=== PATIENT | female | born 1965 | race Caucasian/White ===

== ENCOUNTER → 2018-01-15 | Outpatient (CLI) | payer OTHER ==
[~2018-01-15] MED LIST: ACYC200 PO; ALBU90OI INH; ATOR10 PO; BACPOLTO30 TOP; CEPH500 PO; CODGUAEL PO; CYCL10 PO; DOXY100 PO; ESTRADOIL PO; GABA300 PO; HYDACE5 PO; HYDCOR2.5B TOP; HYDPAM50 PO; HYDR454TO; IBUP600 PO; IBUP800 PO; IBUPROFEN; LAVAP17G PO; LEVFLO500 PO; LISI20 PO; MEDR2.5 PO; METH5 PO; NAPROXEN; OXYACE5T PO; OXYC5 PO; PROM25 PO; Pepcid20 MG PO; RANI150 PO; RXHYDACE PO; TERB24TC; [UNRECOGNIZED DRUG - CODE] TOP
[2018-01-17 13:11] LABS: HPV Genotype 16 Not Detected (NOTDET); HPV Genotype 18 Not Detected (NOTDET)
[2018-02-04 12:25] LABS: HPV High Risk Other Not Detected (NOTDET)
== END ==
LOC: LAB 17:35
PROVIDERS: Registered Nurse Community Health
DX: Z12.4 Encounter for screening for malignant neoplasm of cervix (principal)
CPT/HCPCS: 87624; G0123

== ENCOUNTER → 2019-01-13 | Outpatient (CLI) | payer OTHER ==
[~2019-01-13] MED LIST changes: +DOCU100 PO; +ERGO400 PO
== END | disposition home or self-care (01) ==
LOC: LAB SHORT 15:19 → LAB 15:19
DX: B37.9 Candidiasis, unspecified (principal)
CPT/HCPCS: 87070; 87205

== ENCOUNTER 2019-01-19 07:59 | Day surgery (SDC) | payer OTHER ==
[~2019-01-19] VITALS: Ht 167.6 cm; Wt 80.3 kg
--- NOTE | 2019-01-19 08:50 | NUR ---
History, Chart, Medications and Allergies reviewed before start of procedure. Patient confirms NPO status and agrees with scheduled surgery. Patient States Post-Procedure ride home has been arranged with her mother or her daughter.
--- NOTE | 2019-01-19 09:07 | NUR ---
PATIENT STATES SHE HAS GONE THROUGH MENOPAUSE AND HAD A TUBAL LIGATION. NO HCG INDICATED. Lungs diminished T/O to Auscultation.
--- NOTE | 2019-01-19 09:10 | NUR ---
PATIENT STATES SHE LEFT HER DENTURES AT HOME.
--- NOTE | 2019-01-19 11:03 | NUR ---
INTO STEP WITH RN.
--- NOTE | 2019-01-19 11:05 | NUR ---
ENCOURAGED TO TAKE DEEP BREATHS AND COUGH DEEP BREATHE
--- NOTE | 2019-01-19 11:31 | NUR ---
PATIENT WANTING TO GET DRESSED AT THIS TIME. WENT OVER DISCHARGE INSTRUCTIONS WITH PATIENT. Patient States Post-Procedure ride home has been arranged. Discharged via wheelchair to private car for ride home.
--- NOTE | 2019-01-19 11:41 | NUR ---
DISCHARGED AT THIS TIME WITH ALL [facility]
== END 2019-01-19 22:41 | disposition home or self-care (01) ==
LOC: ORSCMMR 07:59 → ORD 10:00 → ORSCMMR 22:41
PROVIDERS: Obstetrics & Gynecology
PROC: 0UT64ZZ Resection of Left Fallopian Tube, Percutaneous Endoscopic Approach (ICD-10-PCS; principal; 2019-01-19 10:00)
PROC: 0UT14ZZ Resection of Left Ovary, Percutaneous Endoscopic Approach (ICD-10-PCS; principal; 2019-01-19 10:00)
DX: D27.1 Benign neoplasm of left ovary (principal); N83.8 Other noninflammatory disorders of ovary, fallopian tube and broad ligament; I10 Essential (primary) hypertension; J44.9 Chronic obstructive pulmonary disease, unspecified; Z99.81 Dependence on supplemental oxygen; F17.210 Nicotine dependence, cigarettes, uncomplicated; Z79.899 Other long term (current) drug therapy
CPT/HCPCS: 88305; J1100; J2250; J2405; J2710; J3010; J7120

== ENCOUNTER 2024-03-19 13:24 | Inpatient (IN) | payer OTHER ==
[~2024-03-19] VITALS: Ht 167.6 cm; Wt 75.7 kg
[2024-03-19] VITALS (8 sets, daily range): BP systolic 84–99; BP diastolic 69–76
[~2024-03-19 13:24] MED LIST changes: +CEFD300 PO
[2024-03-19 14:20] LABS: Albumin, Blood 2.5 g/dL (3.4-5.0); Albumin/Globulin Ratio 0.8 (0.8-1.8); Bilirubin, Total 0.4 mg/dL (0.1-1.0); Bun/Creatinine Ratio 10.5 (12.0-20.0); Calcium, Blood 8.3 mg/dL (8.5-10.1); Creatinine, Blood 3.34 mg/dL (0.40-1.00); Globulin, Blood 3.3 g/dL (2.2-4.0); Total Protein, Blood 5.8 g/dL (6.4-8.2)
[2024-03-19 14:24] LABS: BASOPHILS ABSOLUTE AUTO 0.04 K/mm3 (0.00-0.23); BASOPHILS PERCENT AUTO 1 % (0-2); EOSINOPHILS ABSOLUTE AUTO 0.04 K/mm3 (0.00-0.68); EOSINOPHILS PERCENT AUTO 1 % (0-6); Hematocrit 34.4 % (33.0-51.0); Hemoglobin 11.6 g/dL (11.5-16.0); IMMATURE GRAN ABSOLUTE AUTO 0.01 K/mm3 (0.00-0.10); IMMATURE GRAN PERCENT AUTO 0 % (0-1); LYMPHOCYTES PERCENT AUTO 34 % (21-46); MONOCYTES ABSOLUTE AUTO 0.38 K/mm3 (0.16-1.47); MONOCYTES PERCENT AUTO 6 % (4-13); Mean Corpuscular HGB 34.1 pg (26.0-34.0); Mean Corpuscular HGB Conc 33.7 g/dL (31.5-36.5); Mean Corpuscular Volume 101 fL (80-100); NEUTROPHILS ABSOLUTE AUTO 3.86 K/mm3 (1.96-9.15); NEUTROPHILS PERCENT AUTO 59 % (41-73); Platelet Count 124 K/mm3 (150-400); RDW Coefficient Variation 16.3 % (11.7-14.2); RDW Standard Deviation 60.2 fL (35.1-46.3); White Blood Cell Count 6.53 K/mm3 (4.00-11.30)
[2024-03-19] MEDS ORDERED: NS 1,000 ML IV SCH ×3 (14:25→16:30)
[2024-03-19 14:37] LABS: Ethanol (Alcohol), Blood, Med <3 mg/dL; Magnesium, Blood 1.8 mg/dL (1.6-2.4)
[2024-03-19] MEDS ORDERED: Ipratropium/Albuterol SulF 2.5-0.5MG/3 ML Amp INH SCH (16:50)
[2024-03-19 16:54] LABS: Base Excess Venous -8.6 mmol/L; Bicarbonate Venous 18.1 mmol/L (24.0-30.0); PCO2 Venous 35.8 mmHg (38-42)
[2024-03-19] MEDS ORDERED: MethylPREDNISolone Sod Succ 125 MG Vial IV SCH (17:00)
[2024-03-19] MEDS ORDERED: Azithromycin 250 MG Tab PO SCH (20:00)
[2024-03-19] MEDS ORDERED: Famotidine 20 MG Tab PO SCH (21:00)
[2024-03-19] MEDS ORDERED: CefTRIAXone Sodium 1,000 MG in NS 100 ML IV SCH (21:00)
[2024-03-19] MEDS ORDERED: Gabapentin 300 MG Cap PO SCH (21:00)
[2024-03-20] VITALS (10 sets, daily range): BP systolic 85–96; BP diastolic 61–83
[2024-03-20 04:22] LABS: Bun/Creatinine Ratio 12.7 (12.0-20.0); Calcium, Blood 7.3 mg/dL (8.5-10.1); Creatinine, Blood 2.37 mg/dL (0.40-1.00); Potassium, Blood 4.4 mmol/L (3.5-5.5)
--- NOTE | 2024-03-20 06:05 | NUR ---
SHIFT SUMMARY A&Ox4, CALLS AND COMMUNICATES NEEDS APPROPRIATELY. BP SOFT WITH SBP 90's, ASYMPTOMATIC, SINUS 90's, DENIES CP/PRESSURE. SpO2> 92% RA-2L VIA NC, DENIES SOB. VERNON CATH PLACED D/T RETENTION, PATENT, DRAINING TAMIKO URINE TO GRAVITY. PT REPORTS INCONTINENCE OF BOWEL, THOUGH USED BEDPAN FOR BM. PT WITH NO C/O PAIN. PT SLEPT COMFORTABLY THROUGHOUT SHIFT, Q2 TURNS PROVIDED. NO OTHER EVENTS, WILL REPORT TO ONCOMING RN.
[2024-03-20] MEDS ORDERED: NS 1,000 ML IV SCH (08:00)
[2024-03-20] MEDS ORDERED: Sodium Bicarbonate 650 MG Tab PO SCH (08:00)
[2024-03-20] MEDS ORDERED: Heparin Sodium,Porcine 5,000 UNIT/0.5 ML SDV SC SCH (09:00)
[2024-03-20] MEDS ORDERED: Cholecalciferol 1000 Unit Tablet (=25MCG) PO SCH (09:00)
--- NOTE | 2024-03-20 11:10 | NUR ---
TRANSFER: PT TRANSFERRED TO [facility] 364 VIA WHEELCHAIR. REPORT GIVEN TO MED RN. ALL BELONGINGS WITH PT.
--- NOTE | 2024-03-20 11:48 | NUR ---
TRANSFER NOTE: PT ARRIVED TO THE UNIT AROUND 1130 VIA WHEELCHAIR. SHE WAS ABLE TO SELF TRANSFER WITH ASSIST TO THE BED. SHE WAS SETTLED IN BED, CALL LIGHT/WATER PROVIDED. 2 RN SKIN CHECK COMPLETED WITH RUYB TOWNSEND AND IVS ARE PATENT. NO SIGNS OR SYMPTOMS OF DISTRESS WITH PATIENT. PLAN OF CARE ONGOING.
--- NOTE | 2024-03-20 16:20 | NUR ---
SHIFT SUMMARY: NO EVENTS OR CHANGES WITH PATIENT SINCE SHE ARRIVED TO THE UNIT. SHE HAS BEEN PLEASANT AND COOPERATIVE WITH CARE. SHE MAKES HER NEEDS KNOWN. SHE VOICES THAT SHE HAS MEMORY ISSUES AND WHEN SHE DOES SHE SHARES THE SAME STORY ABOUT HOW SHE CAN REMEMBER ALL OF HER FAMILY MEMEBERS BI MART NUMBERS, BUT CAN'T REMEMBER OTHER THINGS. 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 SHE IS SATURATING WELL ON ROOM AIR; NOT SHOWING SIGNS OF RESPIRATORY DISTRESS. HER MOTHER IS AT BEDSIDE PLAYING DICE WITH THE PATIENT. PATIENT IS SITTING ON SIDE OF THE BED, CALL LIGHT WITHIN REACH, NO SIGNS OR SYMPTOMS OF DISTRESS. PLAN OF CARE ON GOING.
[2024-03-21 03:10] VITALS: BP 87/64
[2024-03-21 05:46] LABS: Calcium, Blood 8.1 mg/dL (8.5-10.1); Creatinine, Blood 2.13 mg/dL (0.40-1.00); Potassium, Blood 4.4 mmol/L (3.5-5.5)
[2024-03-21 07:21] VITALS: BP 101/69
[2024-03-21] MEDS ORDERED: Sodium Bicarb 8.4% Inj 150 MEQ in Dextrose 5% 1,000 ML IV SCH (08:05)
[2024-03-21] MEDS ORDERED: PredniSONE 20 MG Tab PO SCH (09:00)
[2024-03-21] MEDS ORDERED: Albuterol 2.5 MG/3 ML VIAL INH PRN (11:35)
[2024-03-21] MEDS ORDERED: Polyethylene Glycol 3350 17 gm PO PRN (11:40)
[2024-03-21] MEDS ORDERED: Cyclobenzaprine HCl 10 MG Tab PO PRN (11:40)
[2024-03-21 14:58] VITALS: BP 103/74
--- NOTE | 2024-03-21 16:56 | NUR ---
SHIFT SUMMARY: PATIENT IS ALERT AND ORIENTED X3 WIHT CONFUSION AND FORGETFULNESS. SHE WAS STARTED ON A BICARB DRIP TODAY AND HER VERNON CATHETER WAS REMOVED PER. DR. BERGER IN PREPARATION FOR POSSIBLE D/C TOMORROW. SHE IS A 1 PERSON ASSIST WITH THE WALKER TO THE BATHROOM. SHE DID HAVE A BOWEL MOVEMENT TODAY AFTER RECEIVING MIRALAX. SHE HAS NOT VOIDED SINCE HER VERNON HAS BEEN REMOVED; PATIENT VOICES NO URGE TO URINATE; CURRENT BLADDER SCAN VOLUME IS 115. HER MOTHER IS AT BEDSIDE PLAYING DICE WITH THE PATIENT, PATIENT SITTING ON SIDE OF BED, CALL LIGHT WITHIN REACH, NO SIGNS OR SYMPTOMS OF DISTRESS, PLAN OF CARE ONGOING.
[2024-03-21 19:54] VITALS: BP 105/74
--- NOTE | 2024-03-22 01:04 | NUR ---
HOSPITALIST NOTIFIED. SR. AGUILAR NOTIFIED OF PATIENT HAVING ONE UNMEASURED VOID THIS SHIFT WITH FLUIDS INFUSING. DR. AGUILAR ORDERED FOR BLADDER SCAN TO BE DONE QSHIFT AND TO NOTIFY IF VOLUME IN BLADDER >300MLS.
--- NOTE | 2024-03-22 01:59 | NUR ---
PATIENT IS AOX3 WITH FORGETFULLNESS. PATIENT IS ABLE TO MAKE HER NEEDS KNOWN. PATIENT IS A 1P ASSIST W/FWW AND GAITBELT TO THE BATHROOM. PATIENT TAKES PILLS WHOLE WITH WATER. PATIENT HAS BED LOCKED IN LOWEST POSITION WITH CALL LIGHT IN REACH. REPORT GIVEN TO GENE TOWNSEND.
--- NOTE | 2024-03-22 02:17 | NUR ---
RECEIVED REPORT AND ASSUMED CARE OF PT. SHE IS LYING QUIETLY IN BED WITH HER EYES CLOSED, RESPIRATIONS EVEN AND UNLABORED. BED IN LOWEST POSITION, CALL LIGHT IN REACH.
[2024-03-22 02:53] VITALS: BP 105/73
--- NOTE | 2024-03-22 07:30 | NUR ---
ASSUMED CARE: PT AWAKE AND TALKING TO STAFF DURING BEDSIDE REPORT. ASSISTED WITH DENUTURES AND CELL PHONE. CALL LIGHT IN REACH. DENIES FURTHER NEEDS AT THIS TIME.
--- NOTE | 2024-03-22 08:26 | NUR ---
SHIFT SUMMARY: JG IS A&OX3. VSS, NO ACUTE EVENTS OVERNIGHT. IV TO LEFT ARM INFILTRATED, ULTRASOUND GUIDED AT PLACED BY CUSTOMS OPENER VERIFIER PACKER. SHE IS TOLERATING PO INTAKE WELL, IS A ONE-PERSON ASSIST TO THE BATHROOM WITH THE FWW. ATTENDS IN PLACE FOR OCCASIONAL INCONTINENCE. PT STATES SHE IS HOPEFUL [facility] SHE IS LYING IN BED WITH THE CALL LIGHT IN REACH. REPORT WAS GIVEN TO DAY SHIFT RN.
[2024-03-22 08:41] LABS: Bun/Creatinine Ratio 19.8 (12.0-20.0); Creatinine, Blood 1.77 mg/dL (0.40-1.00); Potassium, Blood 3.9 mmol/L (3.5-5.5)
--- NOTE | 2024-03-22 11:20 | NUR ---
BLADDER SCAN PER DR BERGER'S REQUEST. PT HAD 203 RETAINING. NO NEW ORDERS OR NEEDS AT THIS TIME. CHECKED WITH [facility] PLANNING WHO STATED PT LIVES IN AN APARTMENT ON [address]. PT CONFIRMED SHE LIVES INDEPENDENTLY AND FAMILY WILL BE AVAILABLE TO PICK HER UP FROM HOSPITAL AND TAKE HER HOME. DR BERGER NOTIFIED AND MADE AWARE.
--- NOTE | 2024-03-22 12:24 | NUR ---
PT STATES SHE IS UNABLE TO GET [facility]NTIL TOMORROW. STATES SHE HAS ENOUGH FLEXERIL AT HOME. CALL TO DR BERGER WHO STATED OK TO GIVE HER A DOSE OF AUGMENTIN NOW BEFORE SHE GOES HOME AND THEN SHE CAN GET THE ORDER FROM THE PHARMACY TOMORROW MORNING.
[2024-03-22] MEDS ORDERED: Amoxicillin/Clavulanate K 500 MG Tab PO ONE (12:25)
[2024-03-22] MEDS ORDERED: MIRALAX17 GM PO (12:41)
[2024-03-22] MEDS ORDERED: AUGMENTIN 500-1 EACH PO (12:42)
--- NOTE | 2024-03-22 13:08 | NUR ---
PT GIVEN ORAL ABX AND DC INSRUCTIONS. 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 INSTRUCTED ON MED CHANGES AND FOLLOW UP APPOINTMENTS. [facility] PLANNING STATES THAT HH WILL CALL PT TO MAKE FURTHER ARRANGEMENTS. IV DC'D WNL. PT ESCORTED OUT VIA WHEEL CHAIR. NO FURTHER NEEDS AT THIS TIME.
[2024-03-22] MEDS ORDERED: Famotidine 20 MG Tab PO SCH (21:00)
== END 2024-03-22 13:05 | disposition home health service (06) | DRG 682 ==
LOC: ER 13:24 → ICUE 16:30 → PCU 16:30 → MEDS 03-20 11:27 → ENPENDDIS 03-22 13:03 → MEDS 03-22 13:05
PROVIDERS: Emergency Medicine; ADMIT Internal Medicine
DX: N17.9 Acute kidney failure, unspecified (principal); J18.9 Pneumonia, unspecified organism; E87.1 Hypo-osmolality and hyponatremia; E87.20 Acidosis, unspecified; J44.0 Chronic obstructive pulmonary disease with (acute) lower respiratory infection; N18.30 Chronic kidney disease, stage 3 unspecified; I95.9 Hypotension, unspecified; I12.9 Hypertensive chronic kidney disease with stage 1 through stage 4 chronic kidney disease, or unspecified chronic kidney disease; R33.9 Retention of urine, unspecified; Z91.040 Latex allergy status; Z87.891 Personal history of nicotine dependence; Z88.2 Allergy status to sulfonamides; Z91.81 History of falling
CPT/HCPCS: 36415; 71250; 76770; 80048; 80053; 82803; 83605; 83690; 83735; 83880; 85025; 93005; 93010; 94640; 94664; 94760; 97110; 97162; 99285-25; A9270; J0696; J1644; J2930; J7030; J7070; J7512